=== PATIENT | male | born 1975 | race Caucasian/White ===

== ENCOUNTER 2017-01-15 19:14 | Inpatient (IN) | payer BC, OTHER ==
[~2017-01-15] VITALS: Ht 180.3 cm; Wt 106.2 kg
[2017-01-15] MEDS ORDERED: ACETAMINOPHEN 500 MG TABLET ONE (19:53)
[2017-01-15] MEDS ORDERED: ALBUTEROL/IPRATROPIUM 2.5MG/0.5MG, 3 ML ONE (19:58)
[2017-01-15] MEDS ORDERED: ACETAMINOPHEN 500 MG TABLET PO ONE (20:00)
[2017-01-15] MEDS ORDERED: ALBUTEROL/IPRATROPIUM 2.5MG/0.5MG, 3 ML NPPB ONE (20:00)
[2017-01-15] MEDS ORDERED: SODIUM CHLORIDE FLUSH 10ML SYR IVF ONE (20:00)
[2017-01-15] MEDS ORDERED: SODIUM CHLORIDE 0.9% 1,000ML IVBOLUS ONE (20:00)
[2017-01-15 20:12] LABS: HEMATOCRIT 41.3 % (39.2-51.8); HEMOGLOBIN 13.8 g/dL (13.7-18.0); WHITE BLOOD COUNT 12.8 x10^3/uL (3.4-10)
[2017-01-15 20:17] LABS: ASPARTATE AMINO TRANSFERASE 13 U/L (15-37); BLOOD UREA NITROGEN 10 mg/dL (7-18)
[2017-01-15 20:22] LABS: IS PT STATUS REG ER OR PRE ER? YES
[2017-01-15] MEDS ORDERED: CEFTRIAXONE PMX 1GM/50ML 50 ML ONE (20:56)
[2017-01-15] MEDS ORDERED: CEFTRIAXONE PMX 1GM/50ML 50 ML IV ONE (21:00)
[2017-01-15] MEDS ORDERED: AZITHROMYCIN 500 MG in SODIUM CHLORIDE 0.9% 250 ML IV ONE (21:00)
[2017-01-16] MEDS ORDERED: ONDANSETRON 2MG/ML, 2ML IVPush PRN (01:00)
[2017-01-16] MEDS ORDERED: ACETAMINOPHEN 325 MG TABLET PO PRN (01:00)
[2017-01-16] MEDS ORDERED: POLYETHYLENE GLYCOL 17 GM PACKET PO PRN (01:00)
[2017-01-16] MEDS ORDERED: BISACODYL 10 MG SUPP PR PRN (01:00)
[2017-01-16] MEDS: NICOTINE 14MG/24 HR PATCH.TD24 TD SCH (01:00)
[2017-01-16 01:11] VITALS: BP 99/61
[2017-01-16 01:13] VITALS: BP 99/61
[2017-01-16] MEDS: HEPARIN 5,000 UNITS/ML, 1ML SQ SCH ×3 (01:55→17:41)
[2017-01-16] MEDS ORDERED: ALBUTEROL SULFATE 2.5 MG/3 ML NPPB PRN (05:00)
[2017-01-16 05:14] LABS: HEMATOCRIT 43.4 % (39.2-51.8); HEMOGLOBIN 14.5 g/dL (13.7-18.0); WHITE BLOOD COUNT 24.5 x10^3/uL (3.4-10)
[2017-01-16 05:37] LABS: DIFF TOTAL CELLS COUNTED 100 CELL DIFF
[2017-01-16 05:38] LABS: VERIFY COUNTS? YES
[2017-01-16 06:04] LABS: ASPARTATE AMINO TRANSFERASE 9 U/L (15-37); BLOOD UREA NITROGEN 10 mg/dL (7-18)
[2017-01-16] MEDS: GUAIFENESIN/DM 200-20MG, 10ML UDC PO PRN ×2 (06:07→19:08)
[2017-01-16] MEDS: OXYcodone IR 5MG TABLET PO PRN ×2 (06:07→19:06)
[2017-01-16 07:13] VITALS: BP 103/63
[2017-01-16] MEDS: SODIUM CHLORIDE FLUSH 10ML SYR IVF SCH ×2 (08:54→20:55)
[2017-01-16] MEDS: SENNA/DOCUSATE TABLET PO SCH (08:54)
[2017-01-16] MEDS: SODIUM CHLORIDE 0.9% 1,000 ML IV SCH ×2 (10:42→17:41)
[2017-01-16 14:22] VITALS: BP 103/63
[2017-01-16 19:28] VITALS: BP 126/70
[2017-01-16] MEDS ORDERED: CEFTRIAXONE PMX 1GM/50ML 50 ML IV SCH (21:00)
[2017-01-16] MEDS: AZITHROMYCIN 500 MG in SODIUM CHLORIDE 0.9% 250 ML IV SCH (22:06)
[2017-01-17] MEDS: NICOTINE 14MG/24 HR PATCH.TD24 TD SCH ×2 (01:00→15:47)
[2017-01-17] MEDS: SODIUM CHLORIDE 0.9% 1,000 ML IV SCH ×3 (03:00→15:47)
[2017-01-17] MEDS: HEPARIN 5,000 UNITS/ML, 1ML SQ SCH ×3 (03:00→17:51)
[2017-01-17 03:05] VITALS: BP 147/78
[2017-01-17] MEDS: OXYcodone IR 5MG TABLET PO PRN ×4 (03:15→23:06)
[2017-01-17 04:38] LABS: HEMATOCRIT 39.8 % (39.2-51.8); HEMOGLOBIN 13.2 g/dL (13.7-18.0); WHITE BLOOD COUNT 17.3 x10^3/uL (3.4-10)
[2017-01-17 06:40] VITALS: BP 109/70
[2017-01-17] MEDS: SODIUM CHLORIDE FLUSH 10ML SYR IVF SCH ×2 (09:44→21:06)
[2017-01-17] MEDS: SENNA/DOCUSATE TABLET PO SCH (09:44)
[2017-01-17 14:15] VITALS: BP 132/75
[2017-01-17] MEDS: CEFTRIAXONE PMX 2GM/50ML 50 ML IV SCH (15:17)
[2017-01-17 19:59] VITALS: BP 128/77
[2017-01-17] MEDS: AZITHROMYCIN 500 MG in SODIUM CHLORIDE 0.9% 250 ML IV SCH (21:06)
[2017-01-17] MEDS: GUAIFENESIN/DM 200-20MG, 10ML UDC PO PRN (23:06)
[2017-01-18 02:04] VITALS: BP 107/71
[2017-01-18] MEDS: CEFTRIAXONE PMX 2GM/50ML 50 ML IV SCH ×2 (02:36→15:02)
[2017-01-18] MEDS: SODIUM CHLORIDE 0.9% 1,000 ML IV SCH ×3 (02:36→18:15)
[2017-01-18] MEDS: HEPARIN 5,000 UNITS/ML, 1ML SQ SCH ×3 (02:39→17:13)
[2017-01-18 05:04] LABS: HEMATOCRIT 40.3 % (39.2-51.8); HEMOGLOBIN 13.5 g/dL (13.7-18.0); WHITE BLOOD COUNT 11.9 x10^3/uL (3.4-10)
[2017-01-18 05:09] LABS: BLOOD UREA NITROGEN 6 mg/dL (7-18)
[2017-01-18 08:22] VITALS: BP 130/72
[2017-01-18] MEDS: SODIUM CHLORIDE FLUSH 10ML SYR IVF SCH ×2 (08:29→19:19)
[2017-01-18] MEDS: OXYcodone IR 5MG TABLET PO PRN ×2 (08:36→19:19)
[2017-01-18] MEDS: GUAIFENESIN/DM 200-20MG, 10ML UDC PO PRN ×2 (08:36→15:02)
[2017-01-18] MEDS: SENNA/DOCUSATE TABLET PO SCH (08:36)
[2017-01-18 13:59] VITALS: BP 119/74
[2017-01-18] MEDS: NICOTINE 14MG/24 HR PATCH.TD24 TD SCH (18:26)
[2017-01-18 18:43] VITALS: BP 127/73
[2017-01-19 00:23] VITALS: BP 124/80
[2017-01-19] MEDS: OXYcodone IR 5MG TABLET PO PRN ×3 (00:48→21:51)
[2017-01-19] MEDS: HEPARIN 5,000 UNITS/ML, 1ML SQ SCH ×3 (00:49→17:30)
[2017-01-19] MEDS: SODIUM CHLORIDE 0.9% 1,000 ML IV SCH (00:49)
[2017-01-19] MEDS: GUAIFENESIN/DM 200-20MG, 10ML UDC PO PRN ×3 (00:49→21:50)
[2017-01-19] MEDS: CEFTRIAXONE PMX 2GM/50ML 50 ML IV SCH ×2 (02:07→14:09)
[2017-01-19 05:24] LABS: HEMATOCRIT 39.5 % (39.2-51.8); HEMOGLOBIN 13.4 g/dL (13.7-18.0); WHITE BLOOD COUNT 10.9 x10^3/uL (3.4-10)
[2017-01-19 07:23] VITALS: BP 109/65
[2017-01-19] MEDS: SODIUM CHLORIDE FLUSH 10ML SYR IVF SCH ×2 (08:15→21:00)
[2017-01-19] MEDS: SENNA/DOCUSATE TABLET PO SCH (08:15)
[2017-01-19 13:42] VITALS: BP 147/91
[2017-01-19] MEDS: NICOTINE 14MG/24 HR PATCH.TD24 TD SCH (17:30)
[2017-01-19 19:30] VITALS: BP 128/79
[2017-01-20] MEDS: HEPARIN 5,000 UNITS/ML, 1ML SQ SCH ×2 (01:28→09:00)
[2017-01-20] MEDS: CEFTRIAXONE PMX 2GM/50ML 50 ML IV SCH (01:29)
[2017-01-20 01:37] VITALS: BP 128/69
[2017-01-20 06:49] VITALS: BP 112/75
[2017-01-20] MEDS: SODIUM CHLORIDE FLUSH 10ML SYR IVF SCH (09:00)
[2017-01-20] MEDS: SENNA/DOCUSATE TABLET PO SCH (09:00)
== END 2017-01-20 12:10 | disposition home or self-care (01) | DRG 871 ==
LOC: ED 22:35 → EDIP 23:47 → 3NW 01-16 01:05
PROVIDERS: ADMIT Hospitalist; ATTEND Hospitalist
DX: A41.9 Sepsis, unspecified organism (principal); J15.4 Pneumonia due to other streptococci; J96.01 Acute respiratory failure with hypoxia; E44.1 Mild protein-calorie malnutrition; J44.0 Chronic obstructive pulmonary disease with (acute) lower respiratory infection; F17.210 Nicotine dependence, cigarettes, uncomplicated; Y95 Nosocomial condition; Z83.3 Family history of diabetes mellitus; Z68.32 Body mass index [BMI] 32.0-32.9, adult
CPT/HCPCS: 36415; 71020; 80048; 80053; 83605; 83880; 84484; 85025; 87040; 87070; 87077; 87181; 87205; 93005; 93306; 94640; 96361; 96365; 96366; 96367; J0456; J0696; J1644; J7613; J7620; J7030; J7050